=== PATIENT | female | born 1990 | race African-American/Black ===

== ENCOUNTER → 2016-05-16 | Emergency (ER) | payer OTHER ==
[~2016-05-16] VITALS: Ht 167.6 cm; Wt 70.3 kg
[~2016-05-16] MED LIST: ABILIFY10 MG ORAL; IBUPROFEN600 MG ORAL; METRONIDAZOLE500 MG ORAL; Morphine Sulfate 2mg/ml Inj IVP ONE; NORVASC5 MG ORAL; TRAMADOL HCL50 MG ORAL; Tubing IV Cassette IV ONE; ZOFRAN ODT4 MG ORAL; ZOLOFT25 MG ORAL
[2016-05-16 09:00] VITALS: BP 138/87
--- NOTE | 2016-05-16 09:30 | Emergency Room Report ---
History of Present Illness General Chief Complaint: Abdominal Pain Source: Patient Present Illness HPI The patient presents with abdominal pain that started on Saturday. It was worse on Saturday and she vomited once. There was no blood. She's felt chills but not documented fever. She denies any dysuria. Her last period was in March however she is on Depo-Provera. She's been one time and had a miscarriage at 5 months. She not had any vaginal discharge. She's not using condoms with her saharae. She never had a pelvic infection in the past. She feels like this is a band across her mid to lower abdomen. Not sure if she is . On Saturday and Saturday the pain was 10/10. She tried taking 800 mg of ibuprofen but didn't help. The pain is now 5/10 constant and fluctuates somewhat. Denies any change in her bowels. She moved her bowels yesterday and they were normal. She denies any upper respiratory symptoms at this time. No rashes. Allergies: Coded Allergies: No Known Allergies (Unverified , 02/20/16) Patient History Past Medical History: see triage record Social History: Reports: smoking Social History Narrative with clarence Last Menstrual Period: 03/18/16 Reviewed Nursing Documentation: PMH: Agreed, PSxH: Agreed Nursing Documentation-PMH Past Medical History: No History, Except For Hx Hypertension: Yes Review of Systems All Other Systems: negative except mentioned in HPI Physical Exam Vital Signs Date Time Temp Pulse Resp B/P Pulse Ox O2 Delivery O2 Flow Rate FiO2 05/16/16 08:52 98.4 73 18 141/90 99 Room Air Sp02 EP Interpretation: reviewed, normal General Appearance: well appearing, no apparent distress, GCS 15 Head: normocephalic Eyes: bilateral eye PERRL, bilateral eye normal inspection ENT: moist mucus membranes Neck: supple Respiratory: lungs clear, normal breath sounds Cardiovascular #1: regular rate, rhythm Cardiovascular #2: 2+ radial (R) Gastrointestinal: normal inspection, normal bowel sounds, no mass, non- distended, no guarding, no rebound, tenderness - suprapubic Genitourinary: adnexa normal - but with tenderness bilat, cervix normal, ext genitalia/vag normal, os closed, uterus normal, other - No CMT, but discomfort with exam Musculoskeletal: back normal, gait/station normal, normal range of motion Neurologic: alert, oriented x3, grossly normal Psychiatric: mood/affect normal Skin: normal inspection, warm/dry Medical Decision Making Diagnostic Impression: Primary Impression: Suprapubic pain ER Course Patient presents with abdominal pain for several days. Gait exam is most consistent with PID although differential also includes UTI, appendicitis, ectopic, ovarian torsion, renal stone amongst others. A pelvic exam will be performed. Pain is fairly significant and she will be given IV hydration and analgesia. Also labs will be obtained. Pelvic not with significant CMT - doubt PID. Ultrasound ordered. Ultrasound with small fibroid and physiologic fluid in cul de sac. No TOA. Ovaries normal. Clue cells. Other studies pending. Improved. Patient stable for outpatient observation and treatment. Laboratory Tests Test 05/16/16 09:05 White Blood Count 5.4 K/UL (4.8-10.8) Red Blood Count 4.61 M/UL (4.20-5.40) Hemoglobin 14.1 G/DL (12.0-16.0) Hematocrit 42.2 % (37.0-47.0) Mean Corpuscular Volume 92 FL (80-99) Mean Corpuscular Hemoglobin 30.6 PG (27.0-31.0) Mean Corpuscular Hemoglobin Concent 33.4 G/DL (32.0-36.0) Red Cell Distribution Width 11.9 % (11.6-14.8) Platelet Count 210 K/UL (150-450) Mean Platelet Volume 9.3 FL (6.5-10.1) Neutrophils (%) (Auto) 44.8 % (45.0-75.0) L Lymphocytes (%) (Auto) 41.3 % (20.0-45.0) Monocytes (%) (Auto) 8.4 % (1.0-10.0) Eosinophils (%) (Auto) 4.4 % (0.0-3.0) H Basophils (%) (Auto) 1.2 % (0.0-2.0) Urine Color Pale yellow Urine Appearance Clear Urine pH 8 (4.5-8.0) Urine Specific [place] 1.010 (1.005-1.035) Urine Protein 2+ (NEGATIVE) H Urine Glucose (UA) Negative (NEGATIVE) Urine Ketones Negative (NEGATIVE) Urine Occult Blood 2+ (NEGATIVE) H Urine Nitrite Negative (NEGATIVE) Urine Bilirubin Negative (NEGATIVE) Urine Urobilinogen Normal MG/DL (0.0-1.0) Urine Leukocyte Esterase Negative (NEGATIVE) Urine RBC 5-10 /HPF (0 - 2) H Urine WBC 0-2 /HPF (0 - 2) Urine Squamous Epithelial Cells Few /LPF (NONE/OCC) Urine Bacteria Few /HPF (NONE) Urine HCG, Qualitative Negative Sodium Level 143 mEQ/L (135-145) Potassium Level 3.7 mEQ/L (3.4-4.9) Chloride Level 105 mEQ/L (98-107) Carbon Dioxide Level 26 mEQ/L (20-30) Anion Gap 12 (5-15) Blood Urea Nitrogen 6 mg/dL (7-23) L Creatinine 0.8 mg/dL (0.5-0.9) Estimate Glomerular Filtration Rate > 60 mL/min (>60) Glucose Level 87 mg/dL (74-106) Calcium Level 9.4 mg/dL (8.6-10.2) Total Bilirubin 1.5 mg/dL (0.0-1.2) H Direct Bilirubin 0.2 mg/dL (0.1-0.3) Aspartate Amino Transferase (AST) 16 U/L (5-40) Alanine Aminotransferase (ALT) 8 U/L (3-33) Alkaline Phosphatase 54 U/L (35-104) Total Protein 7.1 g/dL (6.6-8.7) Albumin 4.4 g/dL (3.5-5.2) Globulin 2.7 g/dL Albumin/Globulin Ratio 1.6 (1.0-2.7) Lipase 32 U/L (< 60) Microbiology Date/Time Source Procedure Growth Status 05/16/16 10:50 Vaginal Wet Prep - Final Complete CT/MRI/US Diagnostic Results CT/MRI/US Diagnostic Results : Imaging Test Ordered: pelvic ultrasound Impression Impression: Trace free cul-de-sac fluid, likely physiologic No evidence of tubo-ovarian abscess Incidental finding of probable small uterine fibroid Status: improved Disposition: HOME, SELF-CARE Condition: Improved Scripts Ibuprofen* (MOTRIN*) 600 Mg Tablet 600 MG ORAL Q6H Y for For Pain, #20 TAB Prov: Wilian Smith M.D. 05/16/16 Ondansetron Odt* (ZOFRAN ODT*) 4 Mg Tab.rapdis 4 MG ORAL Q8H Y for Nausea & Vomiting, #6 TAB 0 Refills Prov: Wilian Smith M.D. 05/16/16 Tramadol Hcl* (ULTRAM*) 50 Mg Tablet 50 MG ORAL Q6H Y for For Pain, #10 TAB 0 Refills Prov: Wilian Smith M.D. 05/16/16 Metronidazole* (FLAGYL*) 500 Mg Tablet 500 MG ORAL EVERY 8 HOURS, #21 TAB Prov: Wilian Smith M.D. 05/16/16 Wilian Smith M.D. May 16, 2016 09:30
[2016-05-16 09:37] LABS: BASOPHILS % (AUTO) 1.2 % (0.0-2.0); EOSINOPHILS % (AUTO) 4.4 % (0.0-3.0); LYMPHOCYTES % (AUTO) 41.3 % (20.0-45.0); MEAN CORPUSCULAR HEMOGLOBIN 30.6 PG (27.0-31.0); MEAN CORPUSCULAR HGB CONC 33.4 G/DL (32.0-36.0); MEAN CORPUSCULAR VOLUME 92 FL (80-99); MEAN PLATELET VOLUME 9.3 FL (6.5-10.1); MONOCYTES % (AUTO) 8.4 % (1.0-10.0); NEUTROPHILS % (AUTO) 44.8 % (45.0-75.0); PLATELET COUNT 210 K/UL (150-450); RED BLOOD COUNT 4.61 M/UL (4.20-5.40); RED CELL DISTRIBUTION WIDTH 11.9 % (11.6-14.8); WHITE BLOOD COUNT 5.4 K/UL (4.8-10.8)
[2016-05-16 09:41] LABS: APPEARANCE,URINE CLEAR; KETONES,URINE NEGATIVE (NEGATIVE); LEUKOCYTE ESTERASE ,URINE NEGATIVE (NEGATIVE); NITRITE,URINE NEGATIVE (NEGATIVE); PH,URINE 8 (4.5-8.0); PROTEIN,URINE 2+ (NEGATIVE); UROBILINOGEN,URINE NORMAL MG/DL (0.0-1.0)
[2016-05-16 09:46] LABS: BACTERIA,URINE FEW /HPF; SQUAMOUS EPITHELIAL CELL,UR FEW /LPF (NONE/OCC); WBC,URINE 0-2 /HPF (0 - 2)
[2016-05-16 10:01] LABS: ALANINE AMINOTRANSFERASE 8 U/L (3-33); ALBUMIN/GLOBULIN RATIO 1.6 (1.0-2.7); ANION GAP 12 (5-15); ASPARTATE AMINO TRANSFERASE 16 U/L (5-40); CALCIUM 9.4 mg/dL (8.6-10.2); CARBON DIOXIDE 26 mEQ/L (20-30); CHLORIDE 105 mEQ/L (98-107); CREATININE 0.8 mg/dL (0.5-0.9); GLOMERULAR FILTRATION RATE > 60 mL/min (>60); HEMOLYSIS 8; LIPASE 32 U/L (< 60); POTASSIUM 3.7 mEQ/L (3.4-4.9); SODIUM 143 mEQ/L (135-145); TOTAL PROTEIN 7.1 g/dL (6.6-8.7)
[2016-05-16 10:30] VITALS: BP 147/95
[2016-05-16 12:30] VITALS: BP 155/90
[2016-05-16 13:03] LABS: BILIRUBIN,DIRECT 0.2 mg/dL (0.1-0.3)
--- NOTE | 2016-05-16 14:29 | Diagnostic Imaging Report ---
Indication: Pelvic pain radiating to the back. Negative urine test Technique: Transabdominal and transvaginal images Comparison: None Findings: Uterus measures 8.8 cm length by 3.3 cm AP there. Is a small 15 mm anterior fundal fibroid. Endometrial echo stripe measures 3 mm thick The uterus is retroverted. The endometrial thickness is normal. The right ovary measures 3.9 cm in length the left ovary measures 4.1 cm length. No adnexal mass. Trace free cul-de-sac fluid is noted. Impression: Trace free cul-de-sac fluid, likely physiologic No evidence of tubo-ovarian abscess Incidental finding of probable small uterine fibroid
== END | disposition home or self-care (01) ==
LOC: EMR 09:34
DX: R10.30 Lower abdominal pain, unspecified (principal); D25.9 Leiomyoma of uterus, unspecified; I10 Essential (primary) hypertension; F17.200 Nicotine dependence, unspecified, uncomplicated
CPT/HCPCS: 36415; 76830; 76856; 80053; 81003; 81025; 82248; 83690; 85025; 87070; 87081; 87205; 87210; 96361; 96374; 96375; 99284; J2270; J2405